=== PATIENT | male | born 1960 | race Caucasian/White ===

== ENCOUNTER 2017-04-18 19:04 | Inpatient (IN) | payer MEDICARE ==
[~2017-04-18] VITALS: Ht 172.7 cm; Wt 56.9 kg
[~2017-04-18 19:04] MED LIST: INSREG SQ
[2017-04-18 19:37] LABS: GLUCOSE,POINT OF CARE 378 MG/DL (70-110)
[2017-04-18 21:52] LABS: ANION GAP 11 mmol/L (8-16); CALCIUM, TOTAL 8.7 mg/dL (8.8-10.5); CARBON DIOXIDE 24 mmol/L (22-29); CHLORIDE 101 mmol/L (98-107); CREATININE 1.02 mg/dL (0.60-1.30); GLOMERULAR FILTR. RATE CALC > 60 mL/min (>60); POTASSIUM 4.1 mmol/L (3.5-5.1); SODIUM SERUM 136 mmol/L (136-145); UREA NITROGEN, BLOOD 17 mg/dL (7-18)
[2017-04-18 21:57] LABS: ALANINE AMINOTRANSFERASE 32 U/L (12-78); ALBUMIN 3.3 g/dL (3.4-5.0); ASPARTATE AMINOTRANSFERASE 38 U/L (15-37); TOTAL PROTEIN, SERUM 6.6 g/dL (6.4-8.2)
[2017-04-18 22:02] LABS: BASOPHILS # (AUTO) 0.05 K/uL (0.00-0.20); BASOPHILS % (AUTO) 0.8 % (0.0-2.0); EOSINOPHILS # (AUTO) 0.07 K/uL (0.00-0.70); EOSINOPHILS % (AUTO) 1.01 % (1.0-6.0); HEMATOCRIT 35.5 % (41-53); HEMOGLOBIN 12.4 g/dL (13.5-17.5); LYMPHOCYTES # (AUTO) 1.8 K/uL (1.0-4.8); LYMPHOCYTES % (AUTO) 27.6 % (22.0-44.0); MEAN CORPUSCULAR HGB CONC 34.9 G/dL (31.0-37.0); MEAN CORPUSCULAR VOLUME 83 fL (80-100); MONOCYTES % (AUTO) 14.4 % (2.0-9.0); NEUTROPHILS # (AUTO) 3.8 K/uL (1.8-7.7); NEUTROPHILS % (AUTO) 56.2 % (40.0-70.0); PLATELET COUNT (AUTO) 143 K/uL (150-450); RED BLOOD CELL COUNT(AUTO) 4.27 MIL/uL (4.50-5.90); RED CELL DISTRIBUTION WIDTH 13.7 % (11.5-14.5); WHITE BLOOD COUNT (AUTO) 6.7 K/uL (4.5-11.0)
[2017-04-18] MEDS ORDERED: SODIUM CHLORIDE 0.9% 1,000 ML IV ONE (22:30)
[2017-04-18] MEDS ORDERED: GABAPENTIN 100 MG CAPSULE PO ONE (22:45)
[2017-04-18] MEDS ORDERED: MetFORMIN HCL 500 MG TABLET PO ONE (22:45)
[2017-04-19] MEDS ORDERED: LORazepam 2 MG TABLET PO PRN
[2017-04-19] MEDS ORDERED: ZOLPIDEM TARTRATE 10 MG TABLET PO PRN
[2017-04-19 00:27] LABS: CHOL/HDL RATIO 2.4 (4.2-7.3)
[2017-04-19] MEDS ORDERED: HALOPERIDOL 5 MG TABLET PO PRN ×2 (00:30)
[2017-04-19] MEDS ORDERED: MAG HYDROX/AL HYDROX/SIMETH ES 30 ML SUSPENSION UDCUP PO PRN (00:30)
[2017-04-19] MEDS ORDERED: MAGNESIUM HYDROXIDE SUSPENSION 30 ML UDCUP PO PRN (00:30)
[2017-04-19 00:42] LABS: GLUCOSE,POINT OF CARE 338 MG/DL (70-110)
[2017-04-19 03:04] VITALS: BP 124/70
[2017-04-19] MEDS: ACETAMINOPHEN 325 MG TABLET PO PRN ×3 (03:05→20:57)
[2017-04-19] MEDS ORDERED: PNEUMOCOCCAL VACCINE POLYVALENT 0.5 ML VIAL [PPSV23] IM ONE (03:30)
[2017-04-19 06:32] LABS: GLUCOSE,POINT OF CARE 350 MG/DL (70-110)
[2017-04-19 08:21] VITALS: BP 126/70
[2017-04-19 10:12] VITALS: BP 122/72
[2017-04-19] MEDS ORDERED: GLUCAGON,HUMAN RECOMBINANT 1 MG VIAL IM PRN ×2 (10:15→11:45)
[2017-04-19] MEDS ORDERED: INSULIN ASPART 100 UNITS/ML SQ PRN (10:15)
[2017-04-19 11:54] LABS: GLUCOSE,POINT OF CARE 448 MG/DL (70-110)
[2017-04-19] MEDS: INSULIN ASPART 100 UNITS/ML SQ PRN ×2 (12:12→20:32)
[2017-04-19] MEDS ORDERED: INSULIN DETEMIR 100 UNITS/ML SQ ONE (13:15)
[2017-04-19 16:05] VITALS: BP 120/68
[2017-04-19 16:43] LABS: GLUCOSE,POINT OF CARE 431 MG/DL (70-110)
[2017-04-19 16:48] LABS: GLUCOSE,POINT OF CARE 180 MG/DL (70-110)
[2017-04-19 16:49] LABS: GLUCOSE,POINT OF CARE 96 MG/DL (70-110)
[2017-04-19 20:32] LABS: GLUCOSE COMMENT 1 Received Meds; GLUCOSE,POINT OF CARE 310 MG/DL (70-110)
[2017-04-19] MEDS: INSULIN DETEMIR 100 UNITS/ML SQ SCH (20:32)
[2017-04-19] MEDS ORDERED: INSULIN DETEMIR 100 UNITS/ML SQ SCH (21:00)
[2017-04-20 05:22] VITALS: BP 122/78
[2017-04-20 07:02] LABS: GLUCOSE,POINT OF CARE 262 MG/DL (70-110)
[2017-04-20] MEDS: INSULIN ASPART 100 UNITS/ML SQ PRN ×2 (07:15→11:37)
[2017-04-20 08:47] LABS: CREATINE KINASE MB 0.8 ng/mL (0-5); CREATINE KINASE, TOTAL 79 U/L (39-308)
[2017-04-20 08:53] VITALS: BP 122/66
[2017-04-20] MEDS: SERTRALINE HCL 50 MG TABLET PO SCH (09:43)
[2017-04-20] MEDS: ARIPiprazole 5 MG TABLET PO SCH (09:43)
[2017-04-20] MEDS: INSULIN DETEMIR 100 UNITS/ML SQ SCH ×2 (09:49→20:48)
[2017-04-20 09:55] VITALS: BP 120/68
[2017-04-20] MEDS: ACETAMINOPHEN 325 MG TABLET PO PRN (09:55)
[2017-04-20 10:35] LABS: GLUCOSE,POINT OF CARE 361 MG/DL (70-110)
[2017-04-20 12:52] LABS: GLUCOSE,POINT OF CARE 441 MG/DL (70-110)
[2017-04-20] MEDS: CHOLECALCIFEROL (VIT D3) 2,000 UNITS TABLET PO SCH ×2 (15:00→16:37)
[2017-04-20 16:13] VITALS: BP 115/64
[2017-04-20 17:02] LABS: GLUCOSE,POINT OF CARE 95 MG/DL (70-110)
[2017-04-20 21:13] LABS: GLUCOSE,POINT OF CARE 119 MG/DL (70-110)
[2017-04-21 02:42] VITALS: BP 124/66
[2017-04-21 06:33] LABS: GLUCOSE,POINT OF CARE 116 MG/DL (70-110)
[2017-04-21 08:04] VITALS: BP 120/75
[2017-04-21] MEDS: CHOLECALCIFEROL (VIT D3) 2,000 UNITS TABLET PO SCH ×2 (08:40→16:38)
[2017-04-21] MEDS: ARIPiprazole 5 MG TABLET PO SCH (08:40)
[2017-04-21] MEDS: SERTRALINE HCL 50 MG TABLET PO SCH (08:40)
[2017-04-21] MEDS: INSULIN DETEMIR 100 UNITS/ML SQ SCH ×2 (08:49→20:54)
[2017-04-21] MEDS: INSULIN ASPART 100 UNITS/ML SQ PRN ×3 (11:22→20:55)
[2017-04-21 11:53] LABS: GLUCOSE,POINT OF CARE 206 MG/DL (70-110)
[2017-04-21 11:53] LABS: GLUCOSE,POINT OF CARE 189 MG/DL (70-110)
[2017-04-21 12:07] LABS: HEPATITIS Bs ANTIGEN SCREEN P Negative (Negative); HEPATITIS C AB SCREEN >11.0 s/co ratio (0.0-0.9)
[2017-04-21 16:32] VITALS: BP 121/67
[2017-04-21] MEDS: ACETAMINOPHEN 325 MG TABLET PO PRN (20:35)
[2017-04-22 06:04] LABS: GLUCOSE,POINT OF CARE 222 MG/DL (70-110)
[2017-04-22 06:04] LABS: GLUCOSE,POINT OF CARE 166 MG/DL (70-110)
[2017-04-22 06:31] VITALS: BP 120/64
[2017-04-22] MEDS: INSULIN ASPART 100 UNITS/ML SQ PRN ×4 (06:55→20:50)
[2017-04-22 07:07] LABS: GLUCOSE,POINT OF CARE 120 MG/DL (70-110)
[2017-04-22 08:54] VITALS: BP 120/70
[2017-04-22] MEDS: CHOLECALCIFEROL (VIT D3) 2,000 UNITS TABLET PO SCH ×2 (09:04→17:01)
[2017-04-22] MEDS: SERTRALINE HCL 50 MG TABLET PO SCH (09:04)
[2017-04-22] MEDS: ARIPiprazole 5 MG TABLET PO SCH (09:04)
[2017-04-22] MEDS: INSULIN DETEMIR 100 UNITS/ML SQ SCH ×2 (09:20→20:49)
[2017-04-22 10:03] LABS: GLUCOSE,POINT OF CARE 205 MG/DL (70-110)
[2017-04-22 11:38] LABS: GLUCOSE,POINT OF CARE 271 MG/DL (70-110)
[2017-04-22] MEDS: LORazepam 2 MG TABLET PO PRN ×2 (12:45→18:02)
[2017-04-22] MEDS ORDERED: GLUCAGON,HUMAN RECOMBINANT 1 MG VIAL IM PRN (13:00)
[2017-04-22] MEDS ORDERED: BISACODYL 10 MG RECTAL RECTAL SUPPOSITORY PR PRN (13:15)
[2017-04-22] MEDS ORDERED: LACTULOSE 20 GM/30 ML SOLUTION UDCUP PO PRN (13:15)
[2017-04-22 16:04] VITALS: BP 118/78
[2017-04-22 16:27] LABS: GLUCOSE,POINT OF CARE 159 MG/DL (70-110)
[2017-04-22] MEDS: DOCUSATE SODIUM 250 MG CAPSULE PO SCH (17:01)
[2017-04-22] MEDS: MetFORMIN HCL 500 MG TABLET PO SCH (17:01)
[2017-04-22] MEDS: MAGNESIUM OXIDE 400 MG TABLET PO SCH (17:01)
[2017-04-22 20:32] LABS: GLUCOSE,POINT OF CARE 267 MG/DL (70-110)
[2017-04-23 00:15] VITALS: BP 103/72
[2017-04-23 06:22] LABS: GLUCOSE,POINT OF CARE 113 MG/DL (70-110)
[2017-04-23] MEDS: MetFORMIN HCL 500 MG TABLET PO SCH ×2 (07:04→16:52)
[2017-04-23] MEDS: MAGNESIUM OXIDE 400 MG TABLET PO SCH ×2 (08:08→16:52)
[2017-04-23] MEDS: SERTRALINE HCL 100 MG TABLET PO SCH (08:08)
[2017-04-23] MEDS: ARIPiprazole 5 MG TABLET PO SCH (08:08)
[2017-04-23] MEDS: DOCUSATE SODIUM 250 MG CAPSULE PO SCH ×2 (08:08→16:52)
[2017-04-23] MEDS: CHOLECALCIFEROL (VIT D3) 2,000 UNITS TABLET PO SCH ×2 (08:08→16:52)
[2017-04-23] MEDS: INSULIN DETEMIR 100 UNITS/ML SQ SCH ×2 (09:27→16:50)
[2017-04-23 11:23] LABS: GLUCOSE COMMENT 1 Received Meds; GLUCOSE,POINT OF CARE 248 MG/DL (70-110)
[2017-04-23] MEDS: INSULIN ASPART 100 UNITS/ML SQ PRN ×3 (11:28→20:49)
[2017-04-23 16:01] VITALS: BP 117/61
[2017-04-23 16:47] LABS: GLUCOSE,POINT OF CARE 170 MG/DL (70-110)
[2017-04-23 20:27] LABS: GLUCOSE,POINT OF CARE 159 MG/DL (70-110)
[2017-04-24 00:56] VITALS: BP 124/68
[2017-04-24] MEDS: MetFORMIN HCL 500 MG TABLET PO SCH ×2 (07:00→16:46)
[2017-04-24 07:02] LABS: GLUCOSE,POINT OF CARE 172 MG/DL (70-110)
[2017-04-24] MEDS: INSULIN ASPART 100 UNITS/ML SQ PRN ×4 (07:13→21:02)
[2017-04-24 08:15] VITALS: BP 117/66
[2017-04-24] MEDS: ARIPiprazole 5 MG TABLET PO SCH (09:18)
[2017-04-24] MEDS: CHOLECALCIFEROL (VIT D3) 2,000 UNITS TABLET PO SCH ×2 (09:18→16:48)
[2017-04-24] MEDS: SERTRALINE HCL 100 MG TABLET PO SCH (09:19)
[2017-04-24] MEDS: DOCUSATE SODIUM 250 MG CAPSULE PO SCH ×2 (09:19→16:46)
[2017-04-24] MEDS: MAGNESIUM OXIDE 400 MG TABLET PO SCH ×2 (09:19→16:46)
[2017-04-24] MEDS: INSULIN DETEMIR 100 UNITS/ML SQ SCH ×2 (09:28→21:01)
[2017-04-24 09:32] LABS: GLUCOSE,POINT OF CARE 210 MG/DL (70-110)
[2017-04-24] MEDS: LORazepam 2 MG TABLET PO PRN (10:39)
[2017-04-24 11:33] LABS: GLUCOSE,POINT OF CARE 197 MG/DL (70-110)
[2017-04-24 16:12] VITALS: BP 116/62
[2017-04-24 16:47] LABS: GLUCOSE,POINT OF CARE 180 MG/DL (70-110)
[2017-04-24 21:01] LABS: GLUCOSE,POINT OF CARE 237 MG/DL (70-110)
[2017-04-25 01:53] VITALS: BP 108/66
[2017-04-25 06:27] LABS: GLUCOSE,POINT OF CARE 169 MG/DL (70-110)
[2017-04-25] MEDS: MetFORMIN HCL 500 MG TABLET PO SCH ×2 (06:48→16:41)
[2017-04-25] MEDS: INSULIN ASPART 100 UNITS/ML SQ PRN ×4 (06:49→20:52)
[2017-04-25 08:13] VITALS: BP 124/68
[2017-04-25 09:09] LABS: ALANINE AMINOTRANSFERASE 50 U/L (12-78); ALBUMIN 2.8 g/dL (3.4-5.0); ANION GAP 7 mmol/L (8-16); ASPARTATE AMINOTRANSFERASE 51 U/L (15-37); BILIRUBIN,TOTAL 0.3 mg/dL (0.1-1.0); CALCIUM, TOTAL 8.6 mg/dL (8.8-10.5); CARBON DIOXIDE 28 mmol/L (22-29); CHLORIDE 102 mmol/L (98-107); CREATINE KINASE, TOTAL 24 U/L (39-308); CREATININE 0.66 mg/dL (0.60-1.30); GLOMERULAR FILTR. RATE CALC > 60 mL/min (>60); POTASSIUM 4.2 mmol/L (3.5-5.1); SODIUM SERUM 137 mmol/L (136-145); TOTAL PROTEIN, SERUM 5.8 g/dL (6.4-8.2); UREA NITROGEN, BLOOD 13 mg/dL (7-18)
[2017-04-25] MEDS: ARIPiprazole 5 MG TABLET PO SCH (09:19)
[2017-04-25] MEDS: CHOLECALCIFEROL (VIT D3) 2,000 UNITS TABLET PO SCH ×2 (09:19→16:40)
[2017-04-25] MEDS: SERTRALINE HCL 100 MG TABLET PO SCH (09:19)
[2017-04-25] MEDS: MAGNESIUM OXIDE 400 MG TABLET PO SCH ×2 (09:19→16:41)
[2017-04-25] MEDS: DOCUSATE SODIUM 250 MG CAPSULE PO SCH ×2 (09:19→16:41)
[2017-04-25] MEDS: INSULIN DETEMIR 100 UNITS/ML SQ SCH ×2 (09:33→20:51)
[2017-04-25 09:37] LABS: GLUCOSE,POINT OF CARE 210 MG/DL (70-110)
[2017-04-25 11:18] LABS: GLUCOSE,POINT OF CARE 220 MG/DL (70-110)
[2017-04-25 16:02] VITALS: BP 125/70
[2017-04-25 16:47] LABS: GLUCOSE,POINT OF CARE 185 MG/DL (70-110)
[2017-04-25] MEDS: LORazepam 2 MG TABLET PO PRN (18:20)
[2017-04-26 02:24] VITALS: BP 116/61
[2017-04-26] MEDS: MetFORMIN HCL 500 MG TABLET PO SCH ×2 (06:22→16:49)
[2017-04-26] MEDS: ACETAMINOPHEN 325 MG TABLET PO PRN ×2 (06:28→16:49)
[2017-04-26 08:23] VITALS: BP 120/69
[2017-04-26] MEDS: MAGNESIUM OXIDE 400 MG TABLET PO SCH ×2 (09:19→16:49)
[2017-04-26] MEDS: SERTRALINE HCL 100 MG TABLET PO SCH (09:19)
[2017-04-26] MEDS: CHOLECALCIFEROL (VIT D3) 2,000 UNITS TABLET PO SCH ×2 (09:19→16:48)
[2017-04-26] MEDS: ARIPiprazole 5 MG TABLET PO SCH (09:19)
[2017-04-26] MEDS: DOCUSATE SODIUM 250 MG CAPSULE PO SCH ×2 (09:19→16:49)
[2017-04-26] MEDS: INSULIN DETEMIR 100 UNITS/ML SQ SCH ×2 (09:28→20:34)
[2017-04-26 09:56] LABS: GLUCOSE COMMENT 1 Received Meds; GLUCOSE,POINT OF CARE 269 MG/DL (70-110)
[2017-04-26 10:12] LABS: GLUCOSE,POINT OF CARE 126 MG/DL (70-110)
[2017-04-26 10:19] LABS: GLUCOSE,POINT OF CARE 121 MG/DL (70-110)
[2017-04-26] MEDS: INSULIN ASPART 100 UNITS/ML SQ PRN ×2 (11:16→16:53)
[2017-04-26 11:22] LABS: GLUCOSE,POINT OF CARE 172 MG/DL (70-110)
[2017-04-26 16:02] VITALS: BP 123/69
[2017-04-26] MEDS: LORazepam 2 MG TABLET PO PRN (16:49)
[2017-04-26 17:37] LABS: GLUCOSE,POINT OF CARE 179 MG/DL (70-110)
[2017-04-26 20:42] LABS: GLUCOSE,POINT OF CARE 111 MG/DL (70-110)
[2017-04-27] VITALS (9 sets, daily range): BP systolic 99–131; BP diastolic 60–80
[2017-04-27 05:57] LABS: GLUCOSE,POINT OF CARE 73 MG/DL (70-110)
[2017-04-27] MEDS: ACETAMINOPHEN 325 MG TABLET PO PRN (06:30)
[2017-04-27] MEDS: MetFORMIN HCL 500 MG TABLET PO SCH ×2 (06:59→18:50)
[2017-04-27] MEDS: ARIPiprazole 5 MG TABLET PO SCH (08:47)
[2017-04-27] MEDS: SERTRALINE HCL 100 MG TABLET PO SCH (08:48)
[2017-04-27] MEDS: DOCUSATE SODIUM 250 MG CAPSULE PO SCH ×2 (08:48→18:51)
[2017-04-27] MEDS: MAGNESIUM OXIDE 400 MG TABLET PO SCH ×2 (08:48→18:51)
[2017-04-27] MEDS: CHOLECALCIFEROL (VIT D3) 2,000 UNITS TABLET PO SCH ×2 (08:48→18:50)
[2017-04-27] MEDS: INSULIN DETEMIR 100 UNITS/ML SQ SCH ×2 (08:56→21:42)
[2017-04-27 09:07] LABS: GLUCOSE,POINT OF CARE 266 MG/DL (70-110)
[2017-04-27] MEDS: INSULIN ASPART 100 UNITS/ML SQ PRN (11:22)
[2017-04-27 11:33] LABS: GLUCOSE,POINT OF CARE 243 MG/DL (70-110)
[2017-04-27] MEDS: IBUPROFEN 600 MG TABLET PO PRN (13:24)
[2017-04-27 21:27] LABS: GLUCOSE,POINT OF CARE 95 MG/DL (70-110)
[2017-04-28 01:00] VITALS: BP 115/64
[2017-04-28 06:29] VITALS: BP 115/64
[2017-04-28] MEDS: MetFORMIN HCL 500 MG TABLET PO SCH ×2 (06:51→16:47)
[2017-04-28 06:57] LABS: GLUCOSE,POINT OF CARE 65 MG/DL (70-110)
[2017-04-28 07:02] LABS: GLUCOSE COMMENT 1 Repeated; GLUCOSE COMMENT 2 Received Meds; GLUCOSE,POINT OF CARE 81 MG/DL (70-110)
[2017-04-28 08:07] VITALS: BP 97/52
[2017-04-28] MEDS: ARIPiprazole 5 MG TABLET PO SCH (08:59)
[2017-04-28] MEDS: SERTRALINE HCL 100 MG TABLET PO SCH (08:59)
[2017-04-28] MEDS: DOCUSATE SODIUM 250 MG CAPSULE PO SCH ×2 (08:59→16:47)
[2017-04-28] MEDS: CHOLECALCIFEROL (VIT D3) 2,000 UNITS TABLET PO SCH ×2 (08:59→16:47)
[2017-04-28] MEDS: MAGNESIUM OXIDE 400 MG TABLET PO SCH ×2 (08:59→16:47)
[2017-04-28] MEDS: INSULIN DETEMIR 100 UNITS/ML SQ SCH ×2 (09:09→20:36)
[2017-04-28 09:15] VITALS: BP 109/70
[2017-04-28] MEDS: IBUPROFEN 600 MG TABLET PO PRN ×2 (09:15→16:24)
[2017-04-28 09:27] LABS: GLUCOSE,POINT OF CARE 283 MG/DL (70-110)
[2017-04-28] MEDS: INSULIN ASPART 100 UNITS/ML SQ PRN ×2 (11:06→20:36)
[2017-04-28 11:12] LABS: GLUCOSE,POINT OF CARE 264 MG/DL (70-110)
[2017-04-28 16:06] VITALS: BP 138/79
[2017-04-28 16:24] VITALS: BP 100/98
[2017-04-28 16:27] LABS: GLUCOSE,POINT OF CARE 81 MG/DL (70-110)
[2017-04-28 20:23] LABS: GLUCOSE,POINT OF CARE 148 MG/DL (70-110)
[2017-04-29] VITALS (7 sets, daily range): BP systolic 105–121; BP diastolic 65–71
[2017-04-29] MEDS: IBUPROFEN 600 MG TABLET PO PRN ×3 (01:46→17:12)
[2017-04-29] MEDS: LORazepam 2 MG TABLET PO PRN ×2 (01:46→17:18)
[2017-04-29] MEDS: MetFORMIN HCL 500 MG TABLET PO SCH ×2 (06:10→17:11)
[2017-04-29] MEDS: CHOLECALCIFEROL (VIT D3) 2,000 UNITS TABLET PO SCH ×2 (09:12→17:11)
[2017-04-29] MEDS: MAGNESIUM OXIDE 400 MG TABLET PO SCH ×2 (09:12→17:11)
[2017-04-29] MEDS: DOCUSATE SODIUM 250 MG CAPSULE PO SCH ×2 (09:12→17:11)
[2017-04-29] MEDS: ARIPiprazole 5 MG TABLET PO SCH (09:12)
[2017-04-29] MEDS: SERTRALINE HCL 100 MG TABLET PO SCH (09:12)
[2017-04-29] MEDS: INSULIN DETEMIR 100 UNITS/ML SQ SCH ×2 (09:24→20:18)
[2017-04-29 09:37] LABS: GLUCOSE,POINT OF CARE 150 MG/DL (70-110)
[2017-04-29] MEDS: INSULIN ASPART 100 UNITS/ML SQ PRN ×3 (11:05→20:18)
[2017-04-29 11:07] LABS: GLUCOSE,POINT OF CARE 149 MG/DL (70-110)
[2017-04-29 17:49] LABS: GLUCOSE,POINT OF CARE 141 MG/DL (70-110)
[2017-04-29 20:17] LABS: GLUCOSE,POINT OF CARE 175 MG/DL (70-110)
[2017-04-29] MEDS: CALCIUM OYSTER SHELL 250 MG-VIT D3 125 UNITS TABLET PO SCH (21:34)
[2017-04-30 01:42] VITALS: BP 119/76
[2017-04-30 06:48] LABS: GLUCOSE,POINT OF CARE 146 MG/DL (70-110)
[2017-04-30 06:57] VITALS: BP 105/60
[2017-04-30] MEDS: MetFORMIN HCL 500 MG TABLET PO SCH ×2 (07:13→16:50)
[2017-04-30] MEDS: ACETAMINOPHEN 325 MG TABLET PO PRN (07:13)
[2017-04-30] MEDS: INSULIN ASPART 100 UNITS/ML SQ PRN ×4 (07:15→20:40)
[2017-04-30 08:42] VITALS: BP 107/67
[2017-04-30] MEDS: CHOLECALCIFEROL (VIT D3) 2,000 UNITS TABLET PO SCH ×2 (09:29→16:50)
[2017-04-30] MEDS: ARIPiprazole 5 MG TABLET PO SCH (09:29)
[2017-04-30] MEDS: MAGNESIUM OXIDE 400 MG TABLET PO SCH ×2 (09:29→16:51)
[2017-04-30] MEDS: DOCUSATE SODIUM 250 MG CAPSULE PO SCH ×2 (09:29→16:50)
[2017-04-30] MEDS: CALCIUM OYSTER SHELL 250 MG-VIT D3 125 UNITS TABLET PO SCH (09:30)
[2017-04-30] MEDS: SERTRALINE HCL 100 MG TABLET PO SCH (09:30)
[2017-04-30 09:32] LABS: GLUCOSE,POINT OF CARE 168 MG/DL (70-110)
[2017-04-30] MEDS: INSULIN DETEMIR 100 UNITS/ML SQ SCH ×2 (09:48→20:41)
[2017-04-30 11:37] LABS: GLUCOSE,POINT OF CARE 212 MG/DL (70-110)
[2017-04-30] MEDS: LORazepam 2 MG TABLET PO PRN (12:38)
[2017-04-30 16:08] VITALS: BP 126/79
[2017-04-30] MEDS: IBUPROFEN 600 MG TABLET PO PRN (16:25)
[2017-04-30 16:43] LABS: GLUCOSE,POINT OF CARE 147 MG/DL (70-110)
[2017-04-30 20:32] LABS: GLUCOSE,POINT OF CARE 207 MG/DL (70-110)
[2017-04-30] MEDS: ZOLPIDEM TARTRATE 10 MG TABLET PO PRN (21:54)
[2017-05-01 00:37] VITALS: BP 121/74
[2017-05-01] MEDS: IBUPROFEN 600 MG TABLET PO PRN ×2 (03:22→19:19)
[2017-05-01] MEDS: LORazepam 2 MG TABLET PO PRN (03:22)
[2017-05-01 06:28] LABS: GLUCOSE,POINT OF CARE 97 MG/DL (70-110)
[2017-05-01] MEDS: MetFORMIN HCL 500 MG TABLET PO SCH ×2 (06:47→16:25)
[2017-05-01 08:02] VITALS: BP 127/81
[2017-05-01] MEDS: CHOLECALCIFEROL (VIT D3) 2,000 UNITS TABLET PO SCH ×2 (08:59→16:25)
[2017-05-01] MEDS: DOCUSATE SODIUM 250 MG CAPSULE PO SCH ×2 (09:00→16:25)
[2017-05-01] MEDS: ARIPiprazole 5 MG TABLET PO SCH (09:00)
[2017-05-01] MEDS: MAGNESIUM OXIDE 400 MG TABLET PO SCH ×2 (09:00→16:25)
[2017-05-01] MEDS: CALCIUM OYSTER SHELL 250 MG-VIT D3 125 UNITS TABLET PO SCH (09:00)
[2017-05-01] MEDS: SERTRALINE HCL 100 MG TABLET PO SCH (09:00)
[2017-05-01] MEDS: INSULIN DETEMIR 100 UNITS/ML SQ SCH ×2 (09:23→21:22)
[2017-05-01 09:37] LABS: GLUCOSE,POINT OF CARE 184 MG/DL (70-110)
[2017-05-01] MEDS: INSULIN ASPART 100 UNITS/ML SQ PRN ×3 (11:22→21:22)
[2017-05-01 12:27] LABS: GLUCOSE,POINT OF CARE 164 MG/DL (70-110)
[2017-05-01 16:02] VITALS: BP 123/72
[2017-05-01 17:18] LABS: GLUCOSE,POINT OF CARE 189 MG/DL (70-110)
[2017-05-01 20:19] VITALS: BP 118/70
[2017-05-01] MEDS: ZOLPIDEM TARTRATE 10 MG TABLET PO PRN (21:40)
[2017-05-01 21:53] LABS: GLUCOSE,POINT OF CARE 195 MG/DL (70-110)
[2017-05-02 00:02] VITALS: BP 121/79
[2017-05-02] MEDS: LORazepam 2 MG TABLET PO PRN (01:13)
[2017-05-02 06:07] LABS: GLUCOSE,POINT OF CARE 103 MG/DL (70-110)
[2017-05-02] MEDS: MetFORMIN HCL 500 MG TABLET PO SCH ×2 (06:34→16:46)
[2017-05-02] MEDS: SERTRALINE HCL 100 MG TABLET PO SCH (08:26)
[2017-05-02] MEDS: CHOLECALCIFEROL (VIT D3) 2,000 UNITS TABLET PO SCH ×2 (08:26→16:46)
[2017-05-02] MEDS: ARIPiprazole 5 MG TABLET PO SCH (08:26)
[2017-05-02] MEDS: MAGNESIUM OXIDE 400 MG TABLET PO SCH ×2 (08:26→16:46)
[2017-05-02] MEDS: DOCUSATE SODIUM 250 MG CAPSULE PO SCH ×2 (08:26→16:46)
[2017-05-02] MEDS: CALCIUM OYSTER SHELL 250 MG-VIT D3 125 UNITS TABLET PO SCH (08:26)
[2017-05-02] MEDS: INSULIN DETEMIR 100 UNITS/ML SQ SCH (08:47)
[2017-05-02 08:50] VITALS: BP 118/67
[2017-05-02 08:53] LABS: GLUCOSE,POINT OF CARE 213 MG/DL (70-110)
[2017-05-02] MEDS: INSULIN ASPART 100 UNITS/ML SQ PRN (11:08)
[2017-05-02 11:13] LABS: GLUCOSE,POINT OF CARE 239 MG/DL (70-110)
[2017-05-02 16:13] VITALS: BP 110/75
[2017-05-02] MEDS: IBUPROFEN 600 MG TABLET PO PRN (16:13)
[2017-05-02 16:32] LABS: GLUCOSE COMMENT 1 Juice/Food/D50 Given; GLUCOSE,POINT OF CARE 120 MG/DL (70-110)
[2017-05-02] MEDS ORDERED: METF500T4 PO (16:45)
[2017-05-02] MEDS ORDERED: OSCD250 PO (16:45)
[2017-05-02] MEDS ORDERED: DOCU250C91 PO (16:45)
[2017-05-02] MEDS ORDERED: INSU100V12 SQ (16:45)
[2017-05-02] MEDS ORDERED: CHOL200026 PO (16:45)
[2017-05-02] MEDS ORDERED: ARIP5TAB8 PO (16:45)
[2017-05-02] MEDS ORDERED: SERT100T12 PO (16:45)
[2017-05-02] MEDS ORDERED: MAGN400T29 PO (16:45)
== END 2017-05-02 17:50 | disposition home or self-care (01) | DRG 885 ==
LOC: EMS 19:12 → B2X 04-19 00:14
PROVIDERS: ADMIT Psychiatry & Neurology Psychiatry; ATTEND Psychiatry & Neurology Psychiatry
PROC: 3E0234Z Introduction of Serum, Toxoid and Vaccine into Muscle, Percutaneous Approach (ICD-10-PCS; principal; 2017-04-19)
DX: F25.1 Schizoaffective disorder, depressive type (principal); E11.40 Type 2 diabetes mellitus with diabetic neuropathy, unspecified; D69.6 Thrombocytopenia, unspecified; F15.20 Other stimulant dependence, uncomplicated; E11.65 Type 2 diabetes mellitus with hyperglycemia; R45.851 Suicidal ideations; W07.XXXA Fall from chair, initial encounter; F60.3 Borderline personality disorder; D64.9 Anemia, unspecified; E83.42 Hypomagnesemia; E87.6 Hypokalemia; F10.10 Alcohol abuse, uncomplicated; I10 Essential (primary) hypertension; K59.00 Constipation, unspecified; K74.60 Unspecified cirrhosis of liver; M81.0 Age-related osteoporosis without current pathological fracture; S80.10XA Contusion of unspecified lower leg, initial encounter; Y93.89 Activity, other specified; Y92.89 Other specified places as the place of occurrence of the external cause; Y99.8 Other external cause status; Z59.0 Homelessness; Z23 Encounter for immunization
CPT/HCPCS: 80074; 82306; 82607; 82746; 82962; 83036; 83735; 84439; 84443; 90471; 99285; G0480; J7030

== ENCOUNTER 2017-04-27 14:46 | Emergency (ER) | payer MEDICARE ==
[~2017-04-27] VITALS: Ht 172.7 cm; Wt 59.7 kg
[2017-04-27] MEDS ORDERED: IBUPROFEN 600 MG TABLET PO ONE (16:30)
[2017-04-27] MEDS ORDERED: OxyCODONE HCL/ACETAMINOPHEN 5-325 MG TABLET PO ONE (17:45)
[2017-04-27 17:49] VITALS: BP 143/88
[2017-04-27 19:02] LABS: GLUCOSE,POINT OF CARE 73 MG/DL (70-110)
== END 2017-04-27 17:56 | disposition home or self-care (01) ==
LOC: EMS 14:48
DX: M25.552 Pain in left hip (principal); E11.9 Type 2 diabetes mellitus without complications; M81.0 Age-related osteoporosis without current pathological fracture; Z88.5 Allergy status to narcotic agent; W01.0XXA Fall on same level from slipping, tripping and stumbling without subsequent striking against object, initial encounter; Y93.89 Activity, other specified; Y92.89 Other specified places as the place of occurrence of the external cause; Y99.8 Other external cause status
CPT/HCPCS: 73521; 73552; 82962; 99284